=== PATIENT | female | born 1985 | race Caucasian/White ===

== ENCOUNTER 2016-11-17 05:46 | Emergency (ER) | payer SELFPAY ==
[2016-11-17] MEDS ORDERED: MORPHINE SULFATE 10 MG/ML INJ IV ONE ×2 (06:16→07:17)
[2016-11-17 06:56] LABS: APPEARANCE,URINE CLEAR; BILIRUBIN,URINE NEGATIVE (NEGATIVE); GLUCOSE, URINE NEGATIVE (NEGATIVE); KETONES,URINE NEGATIVE (NEGATIVE); LEUKOCYTE ESTERASE,URINE NEGATIVE (NEGATIVE); NITRITE,URINE NEGATIVE (NEGATIVE); PROTEIN,URINE NEGATIVE (NEGATIVE); URINE SPECIFIC GRAVITY 1.026; UROBILINOGEN,URINE NEGATIVE mg/dL (<2.0)
[2016-11-17 06:57] LABS: ABSOLUTE MONOCYTES (AUTO) 1.1 10^3/uL (0.1-1.4); ABSOLUTE NEUT (AUTO) 11.5 10^3/uL (1.7-8.2); BASOPHILS % (AUTO) 0.3 % (0-2); EOSINOPHILS % (AUTO) 0.3 % (0-6); HEMATOCRIT 39.4 % (36.0-47.0); HEMOGLOBIN 13.5 g/dL (12.0-15.5); HGB HCT DIFFERENCE 1.1; LYMPHOCYTES % (AUTO) 13.4 % (13-45); MEAN CORPUSCULAR HEMOGLOBIN 31.2 pg (27.0-33.4); MEAN CORPUSCULAR HGB CONC 34.2 g/dL (32.0-36.0); MEAN CORPUSCULAR VOLUME 91 fl (80-97); MONOCYTES % (AUTO) 7.4 % (3-13); RED BLOOD COUNT 4.32 10^6/uL (3.72-5.28); SEGMENTED NEUTROPHILS % (AUTO) 78.6 % (42-78); WHITE BLOOD COUNT 14.7 10^3/uL (4.0-10.5)
--- NOTE | 2016-11-17 07:01 | ER Document Report ---
ED Fall - General Chief Complaint: Rib Pain Stated Complaint: FALL,FLANK PAIN Time Seen by Provider: 11/17/16 06:04 Notes: The patient is a 30-year-old female, past medical history IVDA, presents with left upper quadrant and left flank pain that started [place] hard railing. She is having worsening pain when she moves or when she presses on her abdomen. She denies nausea, vomiting, fevers, hematuria, shortness of breath, chest pain, open wounds, diarrhea or constipation. - Related data Allergies/Adverse Reactions: No Known Allergies Allergy (Verified 11/17/16 06:04) Home Medications: Current Home Medications No Home Medications 11/17/16 [History] Past Medical History - General Information source: Patient - Social History Smoking Status: Current Every Day Smoker Chew tobacco use (# tins/day): No Frequency of alcohol use: Occasional Drug Abuse: Heroin - "in the past" Family History: Reviewed & Not Pertinent Surgical Hx: Negative - Immunizations Hx Diphtheria, Pertussis, Tetanus Vaccination: Yes Review of Systems - Review of Systems Notes: REVIEW OF SYSTEMS: CONSTITUTIONAL: -fevers, -chills EENT: -eye pain, -difficulty swallowing, -nasal congestion CARDIOVASCULAR:-chest pain, -syncope. RESPIRATORY: -cough, -SOB GASTROINTESTINAL: +abdominal pain, -nausea, -vomiting, -diarrhea GENITOURINARY: -dysuria, -hematuria MUSCULOSKELETAL: -back pain, -neck pain SKIN: -rash or skin lesions. HEMATOLOGIC: -easy bruising or bleeding. LYMPHATIC: -swollen, enlarged glands. NEUROLOGICAL: -altered mental status or loss of consciousness, -headache, - neurologic symptoms PSYCHIATRIC: -anxiety, -depression. ALL OTHER SYSTEMS REVIEWED AND NEGATIVE. Physical Exam - Vital signs Vitals: Temp Pulse Resp BP Pulse Ox 97.8 F 102 H 20 124/90 H 98 11/17/16 06:00 11/17/16 06:00 11/17/16 06:00 11/17/16 06:00 11/17/16 06:00 - Notes Notes: PHYSICAL EXAMINATION: GENERAL: Moderate distress. HEAD: Atraumatic, normocephalic. EYES: Pupils equal round and reactive to light, extraocular movements intact, sclera anicteric, conjunctiva are normal. ENT: nares patent, oropharynx clear without exudates. Moist mucous membranes. NECK: Normal range of motion, supple without lymphadenopathy LUNGS: Breath sounds clear to auscultation bilaterally and equal. No wheezes rales or rhonchi. HEART: Regular rate and rhythm without murmurs ABDOMEN: Soft, moderate LUQ and LLQ tenderness, normoactive bowel sounds. No guarding, no rebound. No masses appreciated. EXTREMITIES: Normal range of motion, no pitting or edema. No cyanosis. NEUROLOGICAL: Cranial nerves grossly intact. Normal speech, normal gait. Normal sensory and motor exams. SKIN: Warm, Dry, normal turgor, no rashes or lesions noted. Course - Re-evaluation Re-evalutation: Delay in CT due to patient refusing CT because she could not lie flat. She returned to the ER from CT twice before she could obtain her CT. Additional pain medicine was provided each time and I emphasized to the patient about the importance of obtaining the CT scan. 11/17/16 09:00 Call from Radiologist. Large splenic laceration with subcapsular hematoma and large amount of free blood in abdomen. Spoke to Dr. Power ( Surgeon at [facility]). If IR is available to embolize, he is able to admit patient. Spoke to Manager Private (Jean) and he said no IR available. Dr. Power recommends transfer to Trauma Center for further management of her splenic laceration. Called [facility] at 09:[address] Ramirez accepted patient. Pt is HD stable at this time. Will provide additional pain control. Attempting to arrange air transportation. - Vital Signs Vital signs: Temp Pulse Resp BP Pulse Ox 97.8 F 102 H 14 114/84 97 11/17/16 09:37 11/17/16 06:00 11/17/16 09:31 11/17/16 09:31 11/17/16 09:31 - Laboratory Result Diagrams: 11/17/16 06:40 11/17/16 06:40 Laboratory results interpreted by me: 11/17/16 11/17/16 06:40 06:40 WBC 14.7 H Seg Neutrophils % 78.6 H Absolute Neutrophils 11.5 H Glucose 126 H AST 41 H - Diagnostic Test Radiology reviewed: Image reviewed, Reports reviewed Radiology results interpreted by me: CT A/P: SPLENIC LACERATION WITH SUBCAPSULAR HEMATOMA AND EVIDENCE OF ACTIVE CONTRAST EXTRAVASATION. HIGH DENSITY MATERIAL IN THE ABDOMEN AND PELVIS CONSISTENT WITH HEMOPERITONEUM. NO RIB FRACTURES OR OTHER BONY FINDINGS. 2. NO OTHER SIGNIFICANT OR ACUTE FINDING IN THE ABDOMEN OR PELVIS ON CT SCAN WITH IV CONTRAST. - EKG Interpretation by Me EKG shows normal: Sinus rhythm, [place], Intervals, QRS Complexes, ST-T Waves Rate: Normal Critical Care Note - Critical Care Note Total time excluding time spent on procedures (mins): 55 Discharge - Discharge Clinical Impression: Hemoperitoneum, Polysubstance abuse Splenic laceration Qualifiers: Encounter type: initial encounter Qualified Code(s): S36.039A - Unspecified laceration of spleen, initial encounter Condition: Serious Disposition: [facility]
[2016-11-17 07:09] LABS: ALANINE AMINOTRANSFERASE 27 U/L (9-52); ALBUMIN 4.2 g/dL (3.5-5.0); ALKALINE PHOSPHATASE 84 U/L (38-126); ANION GAP 12 (5-19); ASPARTATE AMINO TRANSFERASE 41 U/L (14-36); BILIRUBIN,DIRECT 0.3 mg/dL (0.0-0.4); BILIRUBIN,TOTAL 0.4 mg/dL (0.2-1.3); BLOOD UREA NITROGEN 16 mg/dL (7-20); CARBON DIOXIDE 23 mmol/L (22-30); CHLORIDE 106 mmol/L (98-107); CREATININE RESULT 0.66 mg/dL (0.52-1.25); GLUCOSE 126 mg/dL (75-110); POTASSIUM 4.4 mmol/L (3.6-5.0); SODIUM 140.8 mmol/L (137-145); TOTAL PROTEIN 7.5 g/dL (6.3-8.2)
[2016-11-17 07:10] LABS: URINE BARBITURATES SCREEN NEGATIVE; URINE METHADONE SCREEN NEGATIVE; URINE OPIATES LOW NEGATIVE; URINE PHENCYCLIDINE SCREEN NEGATIVE
[2016-11-17] MEDS ORDERED: LORAZEPAM INJ 2 MG/1 ML VIAL IV ONE (07:17)
[2016-11-17 07:28] LABS: ALCOHOL < 10 mg/dL (NONE DETECTED)
--- NOTE | 2016-11-17 07:53 | RADIOLOGY REPORT (SQ) ---
EXAM DESCRIPTION: RIBS LEFT W/PA CHEST COMPLETED DATE/TIME: 11/17/2016 7:40 am REASON FOR STUDY: fal COMPARISON: None. TECHNIQUE: Frontal view of the chest and additional views of the left ribs acquired. NUMBER OF VIEWS: Three view. LIMITATIONS: None. FINDINGS: FRONTAL CXR: No pneumothorax. No pleural effusion. No atelectasis or infiltrates. RIBS: No displaced rib fractures. No lytic or blastic bony lesions. OTHER: No other significant finding. IMPRESSION: NO PNEUMOTHORAX. NO DISPLACED RIB FRACTURES. COMMENT: SITE OF TRAUMA/COMPLAINT MARKED/STAMP COMPLETED: NO. TECHNICAL DOCUMENTATION: JOB ID: [id number] [employer]- All Rights Reserved
[2016-11-17] MEDS ORDERED: KETAMINE HCL INJ 500 MG/10 ML VIAL IV ONE (08:07)
--- NOTE | 2016-11-17 09:07 | RADIOLOGY REPORT (SQ) ---
EXAM DESCRIPTION: CT ABD/PELVIS WITH IV ONLY COMPLETED DATE/TIME: 11/17/2016 8:47 am REASON FOR STUDY: LUQ tenderness, trauma, hematuria COMPARISON: None. TECHNIQUE: CT scan of the abdomen and pelvis performed using helical scanning technique with dynamic intravenous contrast injection. No oral contrast. Images reviewed with lung, soft tissue, and bone windows. Reconstructed coronal and sagittal MPR images reviewed. Delayed images for evaluation of the urinary system also acquired. All images stored on PACS. All CT scanners at this facility use dose modulation, iterative reconstruction, and/or weight based d osing when appropriate to reduce radiation dose to as low as reasonably achievable (ALARA). [facility]: Dose Right [facility]: CareDose [facility]: Dose Right [facility]: Teradose 4D [facility]: Highlight CONTRAST TYPE AND DOSE: contrast/concentration: Isovue 370.00 mg/ml; Total Contrast Delivered: 62.0 ml; Total Saline Delivered: 47.3 ml RENAL FUNCTION: BUN 16 creatinine 0.66. RADIATION DOSE: Up-to-date CT equipment and radiation dose reduction techniques were employed. CTDIv ol: 4.2 - 4.9 mGy. DLP: 530 mGy-cm.. LIMITATIONS: None. FINDINGS: LOWER CHEST: No significant findings. No nodules or infiltrates. LIVER: Normal size. No masses. No dilated ducts. SPLEEN: There is a defect in the posterior spleen consistent with splenic laceration. There is a sub capsular hematoma measuring 3 x 10 cm. There is contrast extravasation in the posterior spleen and m ixed density in the subcapsular hematoma consistent with active hemorrhage. PANCREAS: No masses. No significant calcifications. No adjacent inflammation or peripancreatic fluid collections. Pancreatic duct not dilated. GALLBLADDER: No identified stones by CT criteria. No inflammatory changes to suggest cholecystitis. ADRENAL GLANDS: No significant masses or asymmetry. RIGHT KIDNEY AND URETER: No solid masses. No significant calcifications. No hydronephrosis or hyd roureter. LEFT KIDNEY AND URETER: No solid masses. No significant calcifications. No hydronephrosis or hydr oureter. AORTA AND VESSELS: No aneurysm. No dissection. Renal arteries, SMA, celiac without stenosis. RETROPERITONEUM: No retroperitoneal adenopathy, hemorrhage or masses. BOWEL AND PERITONEAL CAVITY: No masses or inflammatory changes. Large amount high density fluid in t he abdomen and pelvis. APPENDIX: Normal. PELVIS: No mass. No free fluid. Normal bladder. ABDOMINAL WALL: No masses. No hernias. BONES: No significant or acute findings. OTHER: No other significant finding. IMPRESSION: 1. SPLENIC LACERATION WITH SUBCAPSULAR HEMATOMA AND EVIDENCE OF ACTIVE CONTRAST EXTRAVASATION. HIGH DENSITY MATERIAL IN THE ABDOMEN AND PELVIS CONSISTENT WITH HEMOPERITONEUM. NO RIB FRACTURES OR OTHER BONY FINDINGS. 2. NO OTHER SIGNIFICANT OR ACUTE FINDING IN THE ABDOMEN OR PELVIS ON CT SCAN WITH IV CONTRAST. COMMENT: Pertinent findings on the imaging study reported as a CRITICAL RESULT to ADEOLA GARCIA MD at09:00 on 11/17/2016. Category of Critical Result: Splenic laceration with contrast extravasation and hemoperitoneum. TECHNICAL DOCUMENTATION: JOB ID: [id number] Quality ID # [id number]: Final reports with documentation of one or more dose reduction techniques (e.g., Au tomated exposure control, adjustment of the mA and/or kV according to patient size, use of iterative reconstruction technique) 2010 [employer]- All Rights Reserved
[2016-11-17] MEDS ORDERED: HYDROMORPHONE HCL INJ/PF 2 MG/ML AMPULE IV ONE (09:11)
[2016-11-17 09:37] VITALS: BP 114/84
--- NOTE | 2016-11-17 12:13 | EKG REPORT ---
SEVERITY:- NORMAL ECG - SINUS RHYTHM : Confirmed by: Carla Cross MD 17-Nov-2016 12:12:50
== END 2016-11-17 09:52 | disposition short-term general hospital (02) ==
LOC: ER 05:46
DX: S36.039A Unspecified laceration of spleen, initial encounter (principal); W01.198A Fall on same level from slipping, tripping and stumbling with subsequent striking against other object, initial encounter; Y92.832 Beach as the place of occurrence of the external cause; F17.200 Nicotine dependence, unspecified, uncomplicated; F19.10 Other psychoactive substance abuse, uncomplicated
CPT/HCPCS: 93005; 96376; 99291; 96374; 96375; 86900; 86901; 36415; 86850; 80307 ×2; 84702; 83690; 85025; 81025; 80053; 81001; 71101; 74177; 93010; J2270; J1170; J2060

== ENCOUNTER 2016-11-24 16:11 | Emergency (ER) | payer SELFPAY ==
[2016-11-24] MEDS ORDERED: NORMAL SALINE 1000 ML 1,000 ML IV PRN (17:09)
--- NOTE | 2016-11-24 17:09 | ER Document Report ---
ED Medical Screen (RME) - General Chief Complaint: Abdominal Pain Stated Complaint: ABDOMINAL PAIN Time Seen by Provider: 11/24/16 17:07 Mode of Arrival: Wheelchair Information source: Patient Notes: This is a 28-year-old female with a history of a recent laparotomy for a splenic laceration ([facility]) who presents to the emergency room with increased pain to the abdomen. TRAVEL OUTSIDE OF THE [place] IN LAST 30 DAYS: No - Related Data Allergies/Adverse Reactions: tramadol Allergy (Verified 11/24/16 16:15) Past Medical History Renal/ Medical History: Denies: Hx Peritoneal Dialysis - Immunizations Hx Diphtheria, Pertussis, Tetanus Vaccination: Yes Physical Exam - Vital signs Vitals: Temp Pulse Resp BP Pulse Ox 98.6 F 105 H 18 105/63 96 11/24/16 16:17 11/24/16 16:17 11/24/16 16:17 11/24/16 16:17 11/24/16 16:17 Course - Vital Signs Vital signs: Temp Pulse Resp BP Pulse Ox 98.6 F 105 H 18 105/63 96 11/24/16 16:17 11/24/16 16:17 11/24/16 16:17 11/24/16 16:17 11/24/16 16:17
[2016-11-24] MEDS ORDERED: HYDROMORPHONE HCL 2 MG TABLET PO ONE (17:35)
[2016-11-24 18:14] VITALS: BP 114/73
== END 2016-11-24 18:14 | disposition home or self-care (01) ==
LOC: ER 16:11
DX: G89.18 Other acute postprocedural pain (principal); R10.9 Unspecified abdominal pain; M54.9 Dorsalgia, unspecified
CPT/HCPCS: 99284

== ENCOUNTER 2016-12-07 11:47 | Emergency (ER) | payer SELFPAY ==
[2016-12-07 11:59] VITALS: BP 101/72
--- NOTE | 2016-12-07 12:13 | ER Document Report ---
ED Medical Screen (RME) - General Chief Complaint: Weakness Stated Complaint: ABDOMINAL PAIN Time Seen by Provider: 12/07/16 12:12 Notes: Patient sustained a ruptured spleen and a fall on November 17, and underwent a splenectomy in [place]. She is here today complaining of persistent pain where she had her surgery and in the mid abdomen. She was also seen here for the same condition last week. Denies vomiting. Has had some diarrhea. No fever. Only medications currently are Robaxin. He was on Motrin 800 mg, but ran out. Review Dr. Edgar's chart for this patient on 11/24/2016. TRAVEL OUTSIDE OF THE [place] IN LAST 30 DAYS: No - Related Data Allergies/Adverse Reactions: tramadol Allergy (Verified 12/07/16 11:59) Past Medical History Renal/ Medical History: Denies: Hx Peritoneal Dialysis - Immunizations Hx Diphtheria, Pertussis, Tetanus Vaccination: Yes Physical Exam - Vital signs Vitals: Temp Pulse Resp BP Pulse Ox 98.4 F 98 16 101/72 98 12/07/16 11:56 12/07/16 11:56 12/07/16 11:56 12/07/16 11:56 12/07/16 11:56 Course - Vital Signs Vital signs: Temp Pulse Resp BP Pulse Ox 98.4 F 98 16 101/72 98 12/07/16 11:56 12/07/16 11:56 12/07/16 11:56 12/07/16 11:56 12/07/16 11:56
--- NOTE | 2016-12-07 13:10 | ER Document Report ---
Addendum entered and electronically signed by ADEOLA GARCIA MD 12/07/16 19: 02: Course - Re-evaluation Re-evalutation: 12/07/16 16:30: Call from Radiologist: Patient has evidence of a hematoma in her abdomen or partial splenectomy. Went to patient's room to tell patient results and she was no longer there. Searched entire ER and bathrooms without success. Called phone number listed on her demographics and her spouse's phone number but the phone is disconnected. - Vital Signs Vital signs: Temp Pulse Resp BP Pulse Ox 98.4 F 98 16 101/72 98 12/07/16 11:56 12/07/16 11:56 12/07/16 11:56 12/07/16 11:56 12/07/16 11:56 - Laboratory Result Diagrams: 12/07/16 14:28 12/07/16 14:28 Laboratory results interpreted by me: 12/07/16 12/07/16 14:28 14:28 RBC 3.51 L Hgb 10.7 L Hct 31.9 L Plt Count 821 H AST 13 L Original Note: ED GI/ - General Information source: Patient TRAVEL OUTSIDE OF THE [place] IN LAST 30 DAYS: No - HPI Patient complains to provider of: Abdominal pain, Diarrhea Location: Other - right side Associated symptoms: Other - see above <CARLOS RIZVI - Last Filed: 12/07/16 13:10> <ADEOLA GARCIA - Last Filed: 12/07/16 18:58> <AGUSTÍN BROWN - Last Filed: 12/08/16 09:24> - General Chief Complaint: Weakness Stated Complaint: ABDOMINAL PAIN Time Seen by Provider: 12/07/16 12:12 Notes: Patient is a 30 year old female with a history of IVDA who presents to the ED with complaints of right side abdominal pain. On November 17 she was transported to [place] for spleenectomy following a fall. She was positive for cocaine and marijuana at that time. Patient returned to the ED on 11/24/16 and declined a workup because she states the pain was the same as before. Patient was given a prescription for 30 Dilaudid 2mg. It was later discovered after a call from the pharmacist that patient had received 120 Oxycodone 15mg tablets on 11/19/16. Patient states today the pain is severe and is now in the right side of her abdomen for the past 4 days and the area of pain keeps getting bigger and bigger. Patient states she is allergic to tramadol. She states she is in the area visiting her family and she is from [place]. When asked when she is suppose to follow up with her surgeon following the surgery her response was "I' m not from here, I'm just visiting". When asked how long she would remain in the area she replied "Hopefully only here for a few more days". Patient has not had a fever, no nausea or vomiting but she has had some diarrhea. (CARLOS RIZVI) - Related Data Allergies/Adverse Reactions: tramadol Allergy (Verified 12/07/16 11:59) Past Medical History - General Information source: Patient - Social History Smoking Status: Current Every Day Smoker Chew tobacco use (# tins/day): No Frequency of alcohol use: Occasional Drug Abuse: Cocaine, Marijuana, Prescription drugs Family History: Reviewed & Not Pertinent Renal/ Medical History: Denies: Hx Peritoneal Dialysis Traumatic Medical History: Reports: Hx Spleen Laceration/Rupture Past Surgical History: Reports: Hx Cholecystectomy - Immunizations Hx Diphtheria, Pertussis, Tetanus Vaccination: Yes <CARLOS RIZVI - Last Filed: 12/07/16 13:10> Review of Systems - Review of Systems Constitutional: See HPI. denies: Fever EENT: No symptoms reported Cardiovascular: No symptoms reported Respiratory: No symptoms reported Gastrointestinal: See HPI, Abdominal pain, Diarrhea. denies: Nausea, Vomiting Genitourinary: No symptoms reported Female Genitourinary: No symptoms reported Musculoskeletal: No symptoms reported Skin: No symptoms reported Hematologic/Lymphatic: No symptoms reported Neurological/Psychological: No symptoms reported <CARLOS RIZVI - Last Filed: 12/07/16 13:10> Physical Exam - General General appearance: Alert In distress: None - HEENT Head: Normocephalic, Atraumatic Eyes: Normal Extraocular movements intact: Yes Pupils: PERRL - Respiratory Respiratory status: No respiratory distress Breath sounds: Normal - Cardiovascular Rhythm: Regular Heart sounds: Normal auscultation Murmur: No - Abdominal Inspection: Normal Distension: No distension Bowel sounds: Hypoactive - Positive bowel sounds but a little decreased, gas on percussion Tenderness: Tender - such severe tenderness that I can barely palpate the skin in the right abdomen - Back Back: Normal - Extremities General upper extremity: Normal inspection, Normal ROM General lower extremity: Normal inspection, Normal ROM - Neurological Neuro grossly intact: Yes - Psychological Associated symptoms: Normal affect, Normal mood - Skin Skin Temperature: Warm Skin Moisture: Dry Skin Color: Normal <CARLOS RIZVI - Last Filed: 12/07/16 13:10> - Vital signs Vitals: Temp Pulse Resp BP Pulse Ox 98.4 F 98 16 101/72 98 12/07/16 11:56 12/07/16 11:56 12/07/16 11:56 12/07/16 11:56 12/07/16 11:56 Course <CARLOS RIZVI - Last Filed: 12/07/16 13:10> - Laboratory Result Diagrams: 12/07/16 14:28 12/07/16 14:28 <ADEOLA GARCIA - Last Filed: 12/07/16 18:58> - Laboratory Result Diagrams: 12/07/16 14:28 12/07/16 14:28 <AGUSTÍN BROWN - Last Filed: 12/08/16 09:24> - Re-evaluation Re-evalutation: 12/08/16 09:22 On reviewing the record and completing it today, I find the patient is again positive for cocaine and marijuana indicating continuous abuse since her discharge on 11/19/[address] scan does show right-sided constipation which would explain her right- sided abdominal pain. I am not sure the significance of the hematoma in the splenic fossa. The record indicates the patient eloped after the CT scan. She had threatened to leave earlier if she did not get pain medications. (AGUSTÍN BROWN) - Vital Signs Vital signs: Temp Pulse Resp BP Pulse Ox 98.4 F 98 16 101/72 98 12/07/16 11:56 12/07/16 11:56 12/07/16 11:56 12/07/16 11:56 12/07/16 11:56 - Laboratory Laboratory results interpreted by me: 12/07/16 12/07/16 14:28 14:28 RBC 3.51 L Hgb 10.7 L Hct 31.9 L Plt Count 821 H AST 13 L Procedures <CARLOS RIZVI - Last Filed: 12/07/16 13:10> - Additional Procedures IV insertion Time performed: 14:39 Additional Procedures: IV insertion <ADEOLA GARCIA - Last Filed: 12/07/16 18:58> <AGUSTÍN BROWN - Last Filed: 12/08/16 09:24> - Additional Procedures IV insertion Notes: 20 guage angiocath in left brachial vein using ultrasound. RN unable to obtain access due to Hx of IVDA. (ADEOLA GARCIA) Discharge <CARLOS RIZVI - Last Filed: 12/07/16 13:10> <ADEOLA GARCIA - Last Filed: 12/07/16 18:58> <AGUSTÍN BROWN - Last Filed: 12/08/16 09:24> - Discharge Clinical Impression: Right sided abdominal pain, Status post splenectomy, Narcotic abuse, continuous , Cocaine abuse, Marijuana abuse, continuous Constipation Qualifiers: Constipation type: drug induced constipation Qualified Code(s): K59.03 - Drug induced constipation Condition: Stable Disposition: ELOPED Scribe Documentation - Scribe Written by Scribe:: burak Silva, 12/07/2016, 1310 acting as scribe for :: Piter <CARLOS RIZVI - Last Filed: 12/07/16 13:10>
[2016-12-07 14:43] LABS: ABSOLUTE BASOPHILS # (AUTO) 0.1 10^3/uL (0.0-0.2); ABSOLUTE EOSINOPHILS # (AUTO) 0.2 10^3/uL (0.0-0.6); ABSOLUTE MONOCYTES (AUTO) 0.6 10^3/uL (0.1-1.4); ABSOLUTE NEUT (AUTO) 2.4 10^3/uL (1.7-8.2); BASOPHILS % (AUTO) 1.3 % (0-2); EOSINOPHILS % (AUTO) 3.7 % (0-6); HEMATOCRIT 31.9 % (36.0-47.0); HEMOGLOBIN 10.7 g/dL (12.0-15.5); HGB HCT DIFFERENCE 0.2; LYMPHOCYTES % (AUTO) 38.7 % (13-45); MEAN CORPUSCULAR HEMOGLOBIN 30.5 pg (27.0-33.4); MEAN CORPUSCULAR HGB CONC 33.6 g/dL (32.0-36.0); MEAN CORPUSCULAR VOLUME 91 fl (80-97); RED BLOOD COUNT 3.51 10^6/uL (3.72-5.28); RED CELL DISTRIBUTION WIDTH 13.9 % (11.5-14.0); SEGMENTED NEUTROPHILS % (AUTO) 45.3 % (42-78); WHITE BLOOD COUNT 5.3 10^3/uL (4.0-10.5)
[2016-12-07 14:53] LABS: ALANINE AMINOTRANSFERASE 16 U/L (9-52); ALBUMIN 3.8 g/dL (3.5-5.0); ALKALINE PHOSPHATASE 91 U/L (38-126); ANION GAP 10 (5-19); ASPARTATE AMINO TRANSFERASE 13 U/L (14-36); BILIRUBIN,DIRECT 0.3 mg/dL (0.0-0.4); BILIRUBIN,TOTAL 0.3 mg/dL (0.2-1.3); BLOOD UREA NITROGEN 18 mg/dL (7-20); CALCIUM 9.8 mg/dL (8.4-10.2); CARBON DIOXIDE 27 mmol/L (22-30); CHLORIDE 104 mmol/L (98-107); CREATININE RESULT 0.65 mg/dL (0.52-1.25); GLUCOSE 88 mg/dL (75-110); LIPASE 115.6 U/L (23-300); POTASSIUM 4.9 mmol/L (3.6-5.0); SODIUM 140.8 mmol/L (137-145); TOTAL PROTEIN 7.2 g/dL (6.3-8.2)
[2016-12-07] MEDS ORDERED: KETOROLAC TROMETHAMINE INJ/PF 30 MG/1 ML SDV IV ONE (15:27)
[2016-12-07] MEDS ORDERED: DIPHENHYDRAMINE HCL 50 MG/ML VIAL IV ONE (15:27)
[2016-12-07 15:34] LABS: APPEARANCE,URINE CLEAR; BILIRUBIN,URINE NEGATIVE (NEGATIVE); GLUCOSE, URINE NEGATIVE (NEGATIVE); KETONES,URINE NEGATIVE (NEGATIVE); LEUKOCYTE ESTERASE,URINE NEGATIVE (NEGATIVE); NITRITE,URINE NEGATIVE (NEGATIVE); PROTEIN,URINE NEGATIVE (NEGATIVE); URINE SPECIFIC GRAVITY 1.019; UROBILINOGEN,URINE NEGATIVE mg/dL (<2.0)
[2016-12-07 16:33] LABS: URINE BARBITURATES SCREEN NEGATIVE; URINE METHADONE SCREEN NEGATIVE; URINE OPIATES LOW NEGATIVE; URINE PHENCYCLIDINE SCREEN NEGATIVE
--- NOTE | 2016-12-08 14:51 | RADIOLOGY REPORT (SQ) ---
EXAM DESCRIPTION: CT ABD/PELVIS ORAL ONLY COMPLETED DATE/TIME: 12/07/2016, 1607 hours REASON FOR STUDY: Abdominal pain, post splenectomy on 11/17/2016 COMPARISON: CT abdomen pelvis 11/17/2016 TECHNIQUE: CT scanning of the abdomen and pelvis was performed with oral contrast only, reviewed at lung, bone, and soft tissue windows with sagittal and coronal reconstructions. RADIATION DOSE: 5.4 mGy LIMITATIONS: No IV contrast FINDINGS: On axial images 8 through 23, coronal images 39 through 49, old and sagittal images 58-67, there is an 8 cm x 7 cm x 4 cm soft tissue density in the splenic bed adjacent to surgical sebastian w ith Hounsfield units of 70. This likely represents a hematoma in the surgical bed post splenectomy. This finding was discussed with Dr. Roberts. Remainder of the study demonstrates that the lung bases are clear. Uncontrasted images of the liver, gallbladder, adrenal glands, pancreas, kidneys are unremarkable. Retroperitoneum, pelvis unremarkab le. Normal size female pelvic organs. No free fluid or adenopathy in the pelvis. There is oral contrast throughout the gastrointestinal tract without evidence of bowel obstruction. No CT signs of appendicitis or diverticulitis. Sagittal and coronal reconstructions, bone windows demonstrate no additional findings. IMPRESSION: 8 x 7 x 4 cm soft tissue density measuring 70 Hounsfield units in the left upper quadran t along the splenic surgical bed. This likely represents a hematoma.
== END 2016-12-07 17:13 | disposition left against medical advice (07) ==
LOC: ER 11:47
DX: K59.03 Drug induced constipation (principal); T50.905A Adverse effect of unspecified drugs, medicaments and biological substances, initial encounter; F14.10 Cocaine abuse, uncomplicated; F12.10 Cannabis abuse, uncomplicated; R10.9 Unspecified abdominal pain; R19.7 Diarrhea, unspecified; F17.200 Nicotine dependence, unspecified, uncomplicated; Z90.81 Acquired absence of spleen; Z53.20 Procedure and treatment not carried out because of patient's decision for unspecified reasons; Z88.5 Allergy status to narcotic agent; Z90.49 Acquired absence of other specified parts of digestive tract
CPT/HCPCS: 99281; 96374; 96375; 36415; 83690; 84703; 85025; 80053; 81001; 80307; 74176; J1200; J1885